=== PATIENT | female | born 1960 | race Hispanic/Latino ===

== ENCOUNTER → 2019-01-15 | Outpatient (CLI) | payer OTHER ==
[~2019-01-15] MED LIST: TOPROL XL50 MG PO
--- NOTE | 2019-01-15 09:42 | Diagnostic Imaging Report ---
Abdomen , one view History:Renal stones Comparison:none Findings: Nonobstructive bowel gas pattern. No pneumoperitoneum. No definite bowel pneumatosis or portal venous gas. Cholecystectomy clips within the right upper quadrant. Left ureteral stent is noted, with expected configuration. A rounded calcification measuring 13 mm in size overlies the proximal pigtail. Impression: 1. Expected configuration of left ureteral stent. 2. 13 mm calcification overlies the proximal pigtail, suggesting a calculus within the left renal pelvis. Signed by: Jonathan Rea MD on 01/15/2019 9:01 AM
== END ==
LOC: RAD 08:04
PROVIDERS: ATTEND Urology
DX: N20.0 Calculus of kidney (principal)
CPT/HCPCS: 74018

== ENCOUNTER → 2019-02-22 | Outpatient (CLI) | payer OTHER ==
--- NOTE | 2019-02-22 11:39 | Diagnostic Imaging Report ---
Exam: KUB Comparison: August 15, 2018 Clinical history: Renal calculus Findings: The left internal ureteral stent appears unchanged in position. There is interval development of a 7.7 mm calcific density overlying the inferior pole left renal shadow which may represent nephrolithiasis. The gallbladder has been removed. There is nonobstructive bowel gas pattern. The regional osseous structures are unchanged. Impression: 1. Interval development of a possible subcentimeter left nephrolithiasis. Signed by: Dr. Henry Gamez MD on 02/22/2019 11:36 AM
== END ==
LOC: RAD 10:57
PROVIDERS: ATTEND Urology
DX: N20.0 Calculus of kidney (principal)
CPT/HCPCS: 74018

== ENCOUNTER → 2019-04-12 | Outpatient (CLI) | payer OTHER ==
--- NOTE | 2019-04-12 10:46 | Diagnostic Imaging Report ---
Exam: KUB - 2 views Indication: Renal calculus Comparison: KUB of 06/16/2012 Findings: Left internal nephroureteral stent in place. Left midpole renal calculi measure up to 6.4 mm. There is a 6.5 mm calcific density overlying the proximal loop of the stent. No radiographically apparent renal calculi on the right. Nonobstructive bowel gas pattern. No free air. Mild degenerative changes of the visualized spine and both hip joints. Phleboliths in the pelvis. Status post cholecystectomy. Impression: Left internal nephroureteral stent in place. Left renal calculi measuring up to 6.5 mm as above, including at the proximal loop of the stent. Signed by: Natasha Rowan MD on 04/12/2019 10:43 AM
== END ==
LOC: RAD 10:05
PROVIDERS: ATTEND Urology
DX: N20.0 Calculus of kidney (principal)
CPT/HCPCS: 74018

== ENCOUNTER → 2019-05-24 | Outpatient (CLI) | payer MEDICARE ==
--- NOTE | 2019-05-24 13:02 | Diagnostic Imaging Report ---
Abdomen, 1 view on 2 radiographs Clinical indications: Kidney calculus Comparison: 04/12/2019 Findings: Left double-J ureteral stent is in place. A cluster of calculi overlie the lower pole of the left kidney. The calcifications measure 6 mm, 7 mm, and 4 mm in diameter. No right renal calculi are identified. Phleboliths are identified pelvis. No acute osseous abnormalities. Status post cholecystectomy. Nonobstructive bowel gas pattern. Impression: Left double-J ureteral stent in place. Cluster of calcifications overlying the left lower pole measuring up to 7 mm in diameter. Signed by: Keith Woody MD on 05/24/2019 12:59 PM
== END ==
LOC: RAD 12:09
PROVIDERS: ATTEND Urology
DX: N20.0 Calculus of kidney (principal)
CPT/HCPCS: 74018

== ENCOUNTER → 2020-08-03 | Outpatient (CLI) | payer OTHER | LOC: RAD 09:10 | PROVIDERS: ATTEND Urology | DX: N20.0 Calculus of kidney (principal) | CPT/HCPCS: 74018 ==

== ENCOUNTER → 2020-08-03 | Outpatient (CLI) | payer OTHER | LOC: MAMMO 09:05 | PROVIDERS: ATTEND Internal Medicine | DX: Z12.31 Encounter for screening mammogram for malignant neoplasm of breast (principal) | CPT/HCPCS: 77067 ==

== ENCOUNTER → 2020-09-01 | Outpatient (CLI) | payer OTHER | LOC: US 09:29 | PROVIDERS: ATTEND Urology | DX: R31.21 Asymptomatic microscopic hematuria (principal) | CPT/HCPCS: 76770 ==

== ENCOUNTER → 2021-03-24 | Outpatient (CLI) | payer OTHER | LOC: DX 07:35 | PROVIDERS: ATTEND Internal Medicine | DX: R13.19 Other dysphagia (principal) | CPT/HCPCS: 74220; U0002 ==

== ENCOUNTER → 2021-09-21 | Outpatient (CLI) | payer OTHER | LOC: MAMMO 10:16 | PROVIDERS: ATTEND Internal Medicine | DX: Z12.31 Encounter for screening mammogram for malignant neoplasm of breast (principal) | CPT/HCPCS: 77067 ==

== ENCOUNTER → 2021-09-23 | Outpatient (CLI) | payer OTHER | LOC: RAD 11:32 | PROVIDERS: ATTEND Internal Medicine | DX: M17.11 Unilateral primary osteoarthritis, right knee (principal) ==

== ENCOUNTER → 2021-12-08 | Day surgery (SDC) | payer MEDICARE, OTHER ==
[2021-12-06 10:18] LABS: ANION GAP 15.4 mmol/L (8-16); CALCIUM 8.3 mg/dL (8.4-10.2); CREATININE, SERUM 0.87 mg/dL (0.57-1.11); POTASSIUM 3.4 mmol/L (3.5-5.1)
[~2021-12-08] MED LIST changes: +ACETAMINOPHEN/CODEINE 300MG - 30MG TAB ONE; +DEXAMETHASONE SOD PHOS INJ 4 MG/ML SDV ONE; +FOLIC ACID0.4 MG PO; +FUROSEMIDE40 MG PO; +GLYCOPYRROLATE INJ 0.2 MG/ML VIAL ONE; +LIDOCAINE HCL 2% LOCAL INJ 5 ML SDV VIAL INJ ONE; +POTASSIUM CHLO10 ME1 PO; +POVIDONE IODINE 0.05% 0.05 % ML PO ONE; +PROPOFOL IV EMULSION 10 MG/ML 20 ML VIAL ONE; +SEVOFLURANE INHAL SOLN 250 ML PEN BTL ONE; +TYLENOL325 MG PO; +ULTRACET TABLE1 EACH PO
[2021-12-08 15:30] VITALS: BP 143/88
== END | disposition home or self-care (01) ==
LOC: OR 09:52
PROVIDERS: ATTEND Urology
DX: N20.0 Calculus of kidney (principal); Z01.812 Encounter for preprocedural laboratory examination; Z20.822 Contact with and (suspected) exposure to COVID-19; Z98.84 Bariatric surgery status; E66.01 Morbid (severe) obesity due to excess calories; Z68.41 Body mass index [BMI] 40.0-44.9, adult; K44.9 Diaphragmatic hernia without obstruction or gangrene; I11.0 Hypertensive heart disease with heart failure; M17.0 Bilateral primary osteoarthritis of knee; I20.9 Angina pectoris, unspecified; I50.32 Chronic diastolic (congestive) heart failure; I05.9 Rheumatic mitral valve disease, unspecified; I73.9 Peripheral vascular disease, unspecified; G47.33 Obstructive sleep apnea (adult) (pediatric); D64.9 Anemia, unspecified; R31.29 Other microscopic hematuria
CPT/HCPCS: 0223U; 36415; 50590; 80048; C1758; J0690; J1100; J2001

== ENCOUNTER → 2022-01-07 | Outpatient (CLI) | payer OTHER ==
[~2022-01-07] MED LIST changes: -ACETAMINOPHEN/CODEINE 300MG - 30MG TAB ONE; -DEXAMETHASONE SOD PHOS INJ 4 MG/ML SDV ONE; -GLYCOPYRROLATE INJ 0.2 MG/ML VIAL ONE; -LIDOCAINE HCL 2% LOCAL INJ 5 ML SDV VIAL INJ ONE; -POVIDONE IODINE 0.05% 0.05 % ML PO ONE; -PROPOFOL IV EMULSION 10 MG/ML 20 ML VIAL ONE; -SEVOFLURANE INHAL SOLN 250 ML PEN BTL ONE
== END ==
LOC: RAD 10:42
PROVIDERS: ATTEND Urology
DX: N20.0 Calculus of kidney (principal)
CPT/HCPCS: 74018

== ENCOUNTER → 2022-08-03 | Outpatient (CLI) | payer OTHER | LOC: RAD 09:52 | PROVIDERS: ATTEND Internal Medicine | DX: Z01.818 Encounter for other preprocedural examination (principal) | CPT/HCPCS: 71046 ==

== ENCOUNTER → 2024-04-29 | Outpatient (REF) | payer OTHER | LOC: MAMMO 08:56 | PROVIDERS: ATTEND Internal Medicine | DX: Z12.31 Encounter for screening mammogram for malignant neoplasm of breast (principal) | CPT/HCPCS: 77067 ==

== ENCOUNTER → 2025-03-12 | Outpatient (REF) | payer MEDICARE | LOC: MAMMO 08:55 | PROVIDERS: ATTEND Internal Medicine | DX: Z12.31 Encounter for screening mammogram for malignant neoplasm of breast (principal) ==